=== PATIENT | female | born 1950 | race Caucasian/White ===

== ENCOUNTER 2023-11-05 14:50 | Inpatient (IN) | payer MEDICARE, MEDICAID ==
[~2023-11-05] VITALS: Ht 154.9 cm; Wt 41.3 kg
[~2023-11-05 14:50] MED LIST: ACETAMINOP325 MG/10 PO; ACIDOPHILUS1 EAC1 PO; AMLODIPINE BESYL5 MG PO; ANTI-DIARRHEAL2 MG PO; ARICEPT10 MG PO; ARTIFICIAL TEAR15 ML OD; JARDIANCE25 MG PO; LACTULOSE20 GM/30 M PO; LEXAPRO10 MG PO; LIPITOR20 MG PO; MELOXICAM7.5 MG PO; METFORMIN HCL500 MG PO; NAMENDA5 MG PO; ONDANSETRON ODT4 MG PO; PANTOPRAZOLE SO40 MG PO; SENNA LAX8.6 MG PO; TRAZODONE HCL50 MG PO; TRESIBA FL200 UNIT/1 SC; ULTRAM 50MG50 MG PO; VOLTAREN ARTHRI20 GM TOP; lidocaine patch 5% TP
[2023-11-05 15:59] LABS: BASOPHILS % 0.2 % (0.0-1.0); HEMATOCRIT 40.3 % (34.2-44.1); HEMOGLOBIN 13.6 g/dL (12.0-16.0); LYMPHOCYTES % 4.9 % (18.0-39.1); MEAN CORPUSCULAR HEMOGLOBIN 29.3 pg (28-32); MEAN CORPUSCULAR HGB CONC 33.7 g/dL (31-35); MEAN CORPUSCULAR VOLUME 86.9 fL (81-99); MONOCYTES # (AUTO) 0.6 (0.2-0.8); NEUTROPHILS # (AUTO) 17.8 (2.1-6.9); PLATELET COUNT 432 x10e3/uL (140-360); RED BLOOD COUNT 4.64 x10e6/uL (3.6-5.1); RED CELL DISTRIBUTION WIDTH 15.9 % (11.7-14.4); WHITE BLOOD COUNT 19.57 x10e3/uL (4.8-10.8)
[2023-11-05 16:05] LABS: BILIRUBIN,URINE NEGATIVE (NEGATIVE); CLARITY,URINE CLOUDY (CLEAR); COLOR,URINE YELLOW (YELLOW); GLUCOSE, URINE 500 (NEGATIVE); KETONES,URINE 2+ (NEGATIVE); LEUKOCYTE ESTERASE ,URINE LARGE (NEGATIVE); NITRITE,URINE NEGATIVE (NEGATIVE); PH,URINE 9 (5 - 7); PROTEIN,URINE DIPSTICK >=300 (NEGATIVE); URINE UROBILINOGEN 0.2 mg/dL (0.2 - 1)
[2023-11-05] MEDS: SODIUM CHLORIDE 0.9% 1000ML 1,000 ML IV STA (16:06)
[2023-11-05] MEDS: ACETAMINOPHEN 325 MG TAB PO ONE (16:15)
[2023-11-05 16:17] LABS: BACTERIA,URINE MANY /HPF; RBC,URINE 0-5 /HPF (0-5)
[2023-11-05 17:10] LABS: ALBUMIN/GLOBULIN RATIO 0.7 (0.8-2.0); ANION GAP 26.2 mmol/L (8-16); BILIRUBIN,TOTAL 0.5 mg/dL (0.2-1.2); CALCIUM 8.6 mg/dL (8.4-10.2); CREATININE, SERUM 1.55 mg/dL (0.57-1.11); TOTAL PROTEIN 7.5 g/dL (6.5-8.1)
[2023-11-05 17:11] LABS: POTASSIUM 5.2 mmol/L (3.5-5.1)
[2023-11-05 17:18] LABS: TROPONIN I 0.038 ng/mL (0-0.300)
[2023-11-05] MEDS ORDERED: IOPAMIDOL 370 MG/ML 100 ML INFUS..BTL INJ ONE (17:31)
[2023-11-05] MEDS ORDERED: ONDANSETRON HCL INJ 2MG/ML 2ML 2 MG/ML VIAL IV PRN (18:45)
[2023-11-05] MEDS: SODIUM CHLORIDE 0.9% 1000ML 1,000 ML IV SCH (19:18)
[2023-11-05 20:30] LABS: ABG PH 7.39 (7.35-7.45)
[2023-11-05 20:31] LABS: ABG HCO3 14 mmol/L (22-26); ABG PCO2 23 mmHg (35-45); ABG PO2 117 mmHg (80-105); ABG TCO2 15
[2023-11-05 22:00] VITALS: BP 146/79; PULSE 95; RESP 22; TEMP 97.7; O2SAT 100
[2023-11-05 23:43] VITALS: BP 146/79; PULSE 95; RESP 22; TEMP 97.7; O2SAT 100
[2023-11-06] VITALS (9 sets, daily range): BP systolic 114–146; BP diastolic 65–79; PULSE 88–104; RESP 17–22; TEMP 97.7–98.4; O2SAT 95–100
[2023-11-06] MEDS ORDERED: MEGESTROL400 MG/10 PO (04:24)
[2023-11-06 06:18] LABS: BASOPHILS % 0.1 % (0.0-1.0); HEMATOCRIT 32.1 % (34.2-44.1); HEMOGLOBIN 10.7 g/dL (12.0-16.0); LYMPHOCYTES # (AUTO) 0.8 (1.0-3.2); MEAN CORPUSCULAR HEMOGLOBIN 29.2 pg (28-32); MEAN CORPUSCULAR HGB CONC 33.3 g/dL (31-35); MEAN CORPUSCULAR VOLUME 87.5 fL (81-99); MONOCYTES # (AUTO) 0.7 (0.2-0.8); MONOCYTES % 4.3 % (4.4-11.3); NEUTROPHILS # (AUTO) 14.9 (2.1-6.9); NEUTROPHILS % 89.8 % (38.7-80.0); PLATELET COUNT 311 x10e3/uL (140-360); RED BLOOD COUNT 3.67 x10e6/uL (3.6-5.1); RED CELL DISTRIBUTION WIDTH 15.6 % (11.7-14.4); WHITE BLOOD COUNT 16.61 x10e3/uL (4.8-10.8)
[2023-11-06 06:55] LABS: TROPONIN I 0.042 ng/mL (0-0.300)
[2023-11-06 07:10] LABS: ALBUMIN 2.5 g/dL (3.5-5.0); ALBUMIN/GLOBULIN RATIO 0.7 (0.8-2.0); ANION GAP 22.8 mmol/L (8-16); BILIRUBIN,TOTAL 0.6 mg/dL (0.2-1.2); CALCIUM 8.4 mg/dL (8.4-10.2); CREATININE, SERUM 0.93 mg/dL (0.57-1.11); POTASSIUM 3.8 mmol/L (3.5-5.1); TOTAL PROTEIN 6.3 g/dL (6.5-8.1)
[2023-11-06] MEDS ORDERED: BISACODYL 10 MG SUPP PR PRN (13:00)
[2023-11-06] MEDS ORDERED: DEXTROSE 50% SYRINGE 50 ML IV PRN (13:00)
[2023-11-06 15:16] LABS: TROPONIN I 0.04 ng/mL (0-0.300)
[2023-11-06] MEDS: INSULIN LISPRO 100 UNIT/1 ML 3ML VIAL SQ SCH (16:30)
[2023-11-06] MEDS: TRAZODONE HCL 50 MG TAB PO SCH (20:20)
[2023-11-06] MEDS: DONEPEZIL HCL 5 MG TAB PO SCH (20:20)
[2023-11-07] VITALS (12 sets, daily range): BP systolic 111–132; BP diastolic 37–94; PULSE 84–102; RESP 13–23; TEMP 97.5–98.1; O2SAT 95–100
[2023-11-07 05:43] LABS: BASOPHILS % 0.1 % (0.0-1.0); HEMOGLOBIN 11.8 g/dL (12.0-16.0); LYMPHOCYTES # (AUTO) 1.1 (1.0-3.2); LYMPHOCYTES % 6.5 % (18.0-39.1); MEAN CORPUSCULAR HEMOGLOBIN 28.4 pg (28-32); MEAN CORPUSCULAR HGB CONC 30.3 g/dL (31-35); MONOCYTES # (AUTO) 0.7 (0.2-0.8); MONOCYTES % 4.1 % (4.4-11.3); NEUTROPHILS # (AUTO) 14.7 (2.1-6.9); NEUTROPHILS % 87.6 % (38.7-80.0); PLATELET COUNT 318 x10e3/uL (140-360); RED BLOOD COUNT 4.15 x10e6/uL (3.6-5.1); RED CELL DISTRIBUTION WIDTH 16.2 % (11.7-14.4); WHITE BLOOD COUNT 16.76 x10e3/uL (4.8-10.8)
[2023-11-07 07:08] LABS: ALBUMIN 2.5 g/dL (3.5-5.0); ALBUMIN/GLOBULIN RATIO 0.6 (0.8-2.0); ANION GAP 30.7 mmol/L (8-16); BILIRUBIN,TOTAL 0.4 mg/dL (0.2-1.2); CALCIUM 8.8 mg/dL (8.4-10.2); CREATININE, SERUM 1.04 mg/dL (0.57-1.11); MAGNESIUM 1.9 MG/DL (1.3-2.1); POTASSIUM 3.7 mmol/L (3.5-5.1); TOTAL PROTEIN 6.4 g/dL (6.5-8.1)
[2023-11-07] MEDS: DOCUSATE SODIUM 100 MG CAP PO SCH (09:00)
[2023-11-07] MEDS: PANTOPRAZOLE SOD 40 MG TABEC PO SCH (09:00)
[2023-11-07] MEDS: SENNOSIDES 8.6 MG TAB PO SCH (09:00)
[2023-11-07] MEDS: MEGACE 400 MG / 10 ML CUP PO SCH (09:00)
[2023-11-07] MEDS: ESCITALOPRAM OXALATE 10 MG TAB PO SCH (09:00)
[2023-11-07] MEDS: LACTATED RINGER'S 1,000 ML INJ SCH (09:48)
[2023-11-07] MEDS: Morphine 4mg INJECTION 4 MG/ML INJ IV PRN (11:14)
[2023-11-07] MEDS ORDERED: ONDANSETRON HCL 4 MG ORAL DISINTEGRATING TAB PO PRN (12:15)
[2023-11-07 14:04] LABS: ANION GAP 31.2 mmol/L (8-16); CALCIUM 8.8 mg/dL (8.4-10.2); CREATININE, SERUM 1.04 mg/dL (0.57-1.11); POTASSIUM 4.2 mmol/L (3.5-5.1)
[2023-11-07] MEDS: DEXTROSE 5% 1,000 ML IV ONE ×2 (15:53→17:13)
[2023-11-07 16:26] LABS: ABG HCO3 8 mmol/L (22-26); ABG PCO2 15 mmHg (35-45); ABG PH 7.32 (7.35-7.45); ABG PO2 130 mmHg (80-105); ABG TCO2 8
[2023-11-07] MEDS ORDERED: SODIUM BICARBONATE 8.4% 150 ML in DEXTROSE 5% 1,000 ML IV SCH (18:00)
[2023-11-07] MEDS ORDERED: DEXTROSE 5% 1,000 ML IV ONE (19:30)
[2023-11-07] MEDS ORDERED: INSULIN REGULAR, HUMAN 3ML VL 100 UNIT in SODIUM CHLORIDE 0.9% 100 ML IV SCH (21:15)
[2023-11-07] MEDS: INSULIN REGULAR, HUMAN 3ML VL 100 UNIT in SODIUM CHLORIDE 0.9% 100 ML IV SCH (22:40)
[2023-11-07] MEDS: SODIUM BICARBONATE 8.4% 150 ML in DEXTROSE 5% 1,000 ML IV SCH (22:41)
[2023-11-08] VITALS (21 sets, daily range): BP systolic 90–141; BP diastolic 34–99; PULSE 81–117; RESP 12–34; TEMP 97.5–98.9; O2SAT 98–100
[2023-11-08 00:46] LABS: ANION GAP 23.7 mmol/L (8-16); CALCIUM 8.2 mg/dL (8.4-10.2); CREATININE, SERUM 1.22 mg/dL (0.57-1.11); POTASSIUM 3.7 mmol/L (3.5-5.1)
[2023-11-08] MEDS ORDERED: POTASSIUM CHLORIDE 20MEQ/100ML 200 ML IV PRN (01:45)
[2023-11-08] MEDS ORDERED: POTASSIUM CHLORIDE 20MEQ/100ML 100 ML INJ PRN (01:45)
[2023-11-08] MEDS: MAGNESIUM SULF 1GRAM/DEXTROSE 100 ML IV PRN (01:57)
[2023-11-08] MEDS: ONDANSETRON HCL INJ 2MG/ML 2ML 2 MG/ML VIAL IV PRN (02:54)
[2023-11-08 04:47] LABS: BASOPHILS % 0.1 % (0.0-1.0); EOSINOPHILS % 0.1 % (0.0-6.0); LYMPHOCYTES # (AUTO) 1.1 (1.0-3.2); MEAN CORPUSCULAR HEMOGLOBIN 29.2 pg (28-32); MEAN CORPUSCULAR HGB CONC 33.9 g/dL (31-35); MEAN CORPUSCULAR VOLUME 86.2 fL (81-99); MONOCYTES # (AUTO) 0.7 (0.2-0.8); MONOCYTES % 4.3 % (4.4-11.3); NEUTROPHILS # (AUTO) 13.5 (2.1-6.9); NEUTROPHILS % 87.3 % (38.7-80.0); PLATELET COUNT 236 x10e3/uL (140-360); RED BLOOD COUNT 3.25 x10e6/uL (3.6-5.1); RED CELL DISTRIBUTION WIDTH 16.2 % (11.7-14.4)
[2023-11-08 04:48] LABS: ALBUMIN 2.1 g/dL (3.5-5.0); ANION GAP 15.8 mmol/L (8-16); BILIRUBIN,TOTAL 0.4 mg/dL (0.2-1.2); CALCIUM 8.2 mg/dL (8.4-10.2); CREATININE, SERUM 0.96 mg/dL (0.57-1.11); MAGNESIUM 1.8 MG/DL (1.3-2.1); TOTAL PROTEIN 5.5 g/dL (6.5-8.1)
[2023-11-08 04:49] LABS: ALBUMIN/GLOBULIN RATIO 0.6 (0.8-2.0)
[2023-11-08 04:57] LABS: HEMOGLOBIN 9.5 g/dL (12.0-16.0)
[2023-11-08 04:58] LABS: POTASSIUM 2.8 mmol/L (3.5-5.1)
[2023-11-08] MEDS: POTASSIUM CHLORIDE 20MEQ/100ML 200 ML IV ONE (05:35)
[2023-11-08] MEDS: DEXTROSE 5%/0.45% SOD CHL 1,000 ML IV SCH (06:28)
[2023-11-08] MEDS: MAGNESIUM SULF 1GRAM/DEXTROSE 100 ML IV ONE (07:49)
[2023-11-08] MEDS: PROMETHAZINE 12.5MG/ NACL 0.9% 12.5 MG/50 ML BAG IV ONE (11:38)
[2023-11-08 11:55] LABS: ANION GAP 14.7 mmol/L (8-16); CALCIUM 8.1 mg/dL (8.4-10.2); CREATININE, SERUM 0.66 mg/dL (0.57-1.11); POTASSIUM 3.7 mmol/L (3.5-5.1)
[2023-11-08] MEDS: MUPIROCIN 2% OINT 22 GM TUBE TOP SCH (15:06)
[2023-11-08] MEDS: POTASSIUM PHOSPHATE 40 MM in SODIUM CHLORIDE 0.9% 500ML 500 ML IV ONE (16:44)
[2023-11-08] MEDS ORDERED: POTASSIUM PHOSPHATE 40 MM in SODIUM CHLORIDE 0.9% 250ML 250 ML IV ONE (17:00)
[2023-11-08 23:30] LABS: CALCIUM 7.4 mg/dL (8.4-10.2); CREATININE, SERUM 0.65 mg/dL (0.57-1.11)
[2023-11-09] VITALS (26 sets, daily range): BP systolic 98–136; BP diastolic 41–69; PULSE 89–116; RESP 9–30; TEMP 97.6–98.2; O2SAT 95–100
[2023-11-09 06:21] LABS: BASOPHILS % 0.2 % (0.0-1.0); EOSINOPHILS % 0.3 % (0.0-6.0); HEMATOCRIT 28.4 % (34.2-44.1); HEMOGLOBIN 9.1 g/dL (12.0-16.0); LYMPHOCYTES # (AUTO) 1.2 (1.0-3.2); LYMPHOCYTES % 10.7 % (18.0-39.1); MEAN CORPUSCULAR HEMOGLOBIN 28.3 pg (28-32); MEAN CORPUSCULAR VOLUME 88.5 fL (81-99); MONOCYTES # (AUTO) 0.5 (0.2-0.8); MONOCYTES % 4.6 % (4.4-11.3); NEUTROPHILS # (AUTO) 9.4 (2.1-6.9); NEUTROPHILS % 82.6 % (38.7-80.0); PLATELET COUNT 195 x10e3/uL (140-360); RED BLOOD COUNT 3.21 x10e6/uL (3.6-5.1); RED CELL DISTRIBUTION WIDTH 16.3 % (11.7-14.4); WHITE BLOOD COUNT 11.32 x10e3/uL (4.8-10.8)
[2023-11-09 06:36] LABS: MAGNESIUM 1.6 MG/DL (1.3-2.1); PHOSPHORUS 2.2 MG/DL (2.3-4.7)
[2023-11-09 06:37] LABS: ANION GAP 14.2 mmol/L (8-16); CALCIUM 7.4 mg/dL (8.4-10.2); CREATININE, SERUM 0.57 mg/dL (0.57-1.11); POTASSIUM 4.2 mmol/L (3.5-5.1)
[2023-11-09] MEDS ORDERED: DEXTROSE 50% SYRINGE 50 ML IV PRN (06:45)
[2023-11-09] MEDS ORDERED: POTASSIUM PHOSPHATE 20 MM in SODIUM CHLORIDE 0.9% 250ML 250 ML IV ONE (08:30)
[2023-11-09] MEDS: INSULIN LISPRO 100 UNIT/1 ML 3ML VIAL SQ SCH (08:58)
[2023-11-09] MEDS: MAGNESIUM SULFATE 2GM/50ML 50 ML IV ONE (09:00)
[2023-11-09] MEDS: POTASSIUM PHOSPHATE 20 MM in SODIUM CHLORIDE 0.9% 250ML 250 ML IV ONE (11:54)
[2023-11-09 16:23] LABS: ANION GAP 10.7 mmol/L (8-16); CALCIUM 7.7 mg/dL (8.4-10.2); CREATININE, SERUM 0.5 mg/dL (0.57-1.11); POTASSIUM 4.7 mmol/L (3.5-5.1)
[2023-11-09] MEDS: ENOXAPARIN SOD INJ 40 MG/0.4 ML SYR SC SCH (17:34)
[2023-11-09] MEDS: Morphine 2mg Syringe 2 MG/ML SYR IV PRN (18:05)
[2023-11-09] MEDS: DEXTROSE 5% 1,000 ML IV ONE (19:45)
[2023-11-10] VITALS (44 sets, daily range): BP systolic 93–138; BP diastolic 48–94; PULSE 86–134; RESP 10–35; TEMP 97.8–99.7; O2SAT 95–100
[2023-11-10 04:48] LABS: BASOPHILS % 0.2 % (0.0-1.0); EOSINOPHILS % 0.5 % (0.0-6.0); HEMATOCRIT 27.8 % (34.2-44.1); HEMOGLOBIN 9.2 g/dL (12.0-16.0); LYMPHOCYTES # (AUTO) 1.4 (1.0-3.2); LYMPHOCYTES % 15.6 % (18.0-39.1); MEAN CORPUSCULAR HEMOGLOBIN 28.8 pg (28-32); MEAN CORPUSCULAR HGB CONC 33.1 g/dL (31-35); MEAN CORPUSCULAR VOLUME 87.1 fL (81-99); MONOCYTES # (AUTO) 0.4 (0.2-0.8); MONOCYTES % 4.5 % (4.4-11.3); NEUTROPHILS # (AUTO) 6.8 (2.1-6.9); NEUTROPHILS % 77.5 % (38.7-80.0); PLATELET COUNT 179 x10e3/uL (140-360); RED BLOOD COUNT 3.19 x10e6/uL (3.6-5.1); RED CELL DISTRIBUTION WIDTH 16.3 % (11.7-14.4); WHITE BLOOD COUNT 8.72 x10e3/uL (4.8-10.8)
[2023-11-10 05:06] LABS: ALBUMIN 1.9 g/dL (3.5-5.0); ALBUMIN/GLOBULIN RATIO 0.6 (0.8-2.0); BILIRUBIN,TOTAL 0.3 mg/dL (0.2-1.2); CALCIUM 7.7 mg/dL (8.4-10.2); CREATININE, SERUM 0.4 mg/dL (0.57-1.11); TOTAL PROTEIN 5.1 g/dL (6.5-8.1)
[2023-11-10] MEDS: SODIUM CHLORIDE 1 GM TAB PO SCH (08:30)
[2023-11-11] VITALS (37 sets, daily range): BP systolic 105–159; BP diastolic 52–107; PULSE 90–150; RESP 9–31; TEMP 97.7–98.9; O2SAT 92–100
[2023-11-11 06:07] LABS: BASOPHILS % 0.1 % (0.0-1.0); EOSINOPHILS % 0.2 % (0.0-6.0); HEMOGLOBIN 9.4 g/dL (12.0-16.0); LYMPHOCYTES # (AUTO) 1.3 (1.0-3.2); MEAN CORPUSCULAR HEMOGLOBIN 28.8 pg (28-32); MEAN CORPUSCULAR HGB CONC 32.4 g/dL (31-35); MONOCYTES # (AUTO) 0.5 (0.2-0.8); MONOCYTES % 5.3 % (4.4-11.3); NEUTROPHILS % 78.7 % (38.7-80.0); PLATELET COUNT 203 x10e3/uL (140-360); RED BLOOD COUNT 3.26 x10e6/uL (3.6-5.1); RED CELL DISTRIBUTION WIDTH 16.3 % (11.7-14.4)
[2023-11-11 07:02] LABS: ALBUMIN 1.9 g/dL (3.5-5.0); ALBUMIN/GLOBULIN RATIO 0.5 (0.8-2.0); ANION GAP 13.6 mmol/L (8-16); BILIRUBIN,TOTAL 0.2 mg/dL (0.2-1.2); CALCIUM 8.3 mg/dL (8.4-10.2); CREATININE, SERUM 0.55 mg/dL (0.57-1.11); POTASSIUM 4.6 mmol/L (3.5-5.1); TOTAL PROTEIN 5.5 g/dL (6.5-8.1)
[2023-11-11] MEDS: DEXTROSE 5% 1,000 ML IV ONE (09:02)
[2023-11-11] MEDS: INSULIN GLARGINE 100 UNITS/ML VIAL SQ SCH (23:23)
[2023-11-12] VITALS: BP 130/57; PULSE 100; RESP 19; TEMP 98; O2SAT 99
[2023-11-12 06:14] LABS: BASOPHILS % 0.3 % (0.0-1.0); EOSINOPHILS % 0.3 % (0.0-6.0); HEMATOCRIT 26.3 % (34.2-44.1); HEMOGLOBIN 8.7 g/dL (12.0-16.0); LYMPHOCYTES # (AUTO) 1.6 (1.0-3.2); LYMPHOCYTES % 17.6 % (18.0-39.1); MEAN CORPUSCULAR HEMOGLOBIN 28.9 pg (28-32); MEAN CORPUSCULAR HGB CONC 33.1 g/dL (31-35); MEAN CORPUSCULAR VOLUME 87.4 fL (81-99); MONOCYTES # (AUTO) 0.8 (0.2-0.8); MONOCYTES % 8.1 % (4.4-11.3); NEUTROPHILS # (AUTO) 6.5 (2.1-6.9); PLATELET COUNT 218 x10e3/uL (140-360); RED BLOOD COUNT 3.01 x10e6/uL (3.6-5.1); RED CELL DISTRIBUTION WIDTH 15.7 % (11.7-14.4); WHITE BLOOD COUNT 9.26 x10e3/uL (4.8-10.8)
[2023-11-12 06:34] LABS: ANION GAP 11.3 mmol/L (8-16); CREATININE, SERUM 0.58 mg/dL (0.57-1.11); MAGNESIUM 1.5 MG/DL (1.3-2.1); POTASSIUM 4.3 mmol/L (3.5-5.1)
[2023-11-12 09:32] VITALS: BP 130/65; PULSE 108; RESP 15; TEMP 98.5; O2SAT 99
[2023-11-12] MEDS: MAGNESIUM SULFATE 2GM/50ML 50 ML IV ONE ×2 (10:11→11:53)
[2023-11-12 13:55] VITALS: BP 101/58; PULSE 103; RESP 16; TEMP 97.6; O2SAT 100
[2023-11-12 16:52] VITALS: BP 112/54; PULSE 94; RESP 15; TEMP 97.3; O2SAT 100
[2023-11-12 20:00] VITALS: BP 131/68; PULSE 95; RESP 17; TEMP 98.5; O2SAT 100
[2023-11-12 21:30] VITALS: BP 131/68; PULSE 95; RESP 17; TEMP 98.5; O2SAT 100
[2023-11-13] VITALS (7 sets, daily range): BP systolic 104–140; BP diastolic 59–74; PULSE 92–104; RESP 18; TEMP 97.5–98.7; O2SAT 98–100
[2023-11-13 06:38] LABS: BASOPHILS % 0.3 % (0.0-1.0); EOSINOPHILS % 0.3 % (0.0-6.0); HEMATOCRIT 26.2 % (34.2-44.1); HEMOGLOBIN 8.7 g/dL (12.0-16.0); LYMPHOCYTES # (AUTO) 1.9 (1.0-3.2); LYMPHOCYTES % 20.4 % (18.0-39.1); MEAN CORPUSCULAR HEMOGLOBIN 28.7 pg (28-32); MEAN CORPUSCULAR HGB CONC 33.2 g/dL (31-35); MEAN CORPUSCULAR VOLUME 86.5 fL (81-99); MONOCYTES % 10.5 % (4.4-11.3); NEUTROPHILS % 64.5 % (38.7-80.0); PLATELET COUNT 257 x10e3/uL (140-360); RED BLOOD COUNT 3.03 x10e6/uL (3.6-5.1); RED CELL DISTRIBUTION WIDTH 15.5 % (11.7-14.4); WHITE BLOOD COUNT 9.27 x10e3/uL (4.8-10.8)
[2023-11-13 07:07] LABS: ANION GAP 11.3 mmol/L (8-16); CREATININE, SERUM 0.59 mg/dL (0.57-1.11); POTASSIUM 4.3 mmol/L (3.5-5.1)
[2023-11-13] MEDS ORDERED: CEFTRIAXONE 1 GM VIAL ONE (08:50)
[2023-11-13] MEDS: DOCUSATE SODIUM LIQD 100 MG/10 ML UDC NG SCH (09:19)
[2023-11-13] MEDS: METOPROLOL TARTRATE 25 MG TAB PO SCH (12:21)
[2023-11-13] MEDS: ACETAMINOPHEN 325 MG TAB PO PRN (16:56)
[2023-11-14] VITALS (8 sets, daily range): BP systolic 122–129; BP diastolic 62–70; PULSE 86–104; RESP 17–18; TEMP 97.9–98.6; O2SAT 95–100
[2023-11-14 07:20] LABS: BASOPHILS % 0.3 % (0.0-1.0); EOSINOPHILS % 0.3 % (0.0-6.0); HEMOGLOBIN 8.8 g/dL (12.0-16.0); LYMPHOCYTES # (AUTO) 1.9 (1.0-3.2); LYMPHOCYTES % 19.8 % (18.0-39.1); MEAN CORPUSCULAR HGB CONC 33.8 g/dL (31-35); MEAN CORPUSCULAR VOLUME 85.8 fL (81-99); MONOCYTES # (AUTO) 1.1 (0.2-0.8); MONOCYTES % 12.1 % (4.4-11.3); PLATELET COUNT 284 x10e3/uL (140-360); RED BLOOD COUNT 3.03 x10e6/uL (3.6-5.1); RED CELL DISTRIBUTION WIDTH 15.8 % (11.7-14.4); WHITE BLOOD COUNT 9.33 x10e3/uL (4.8-10.8)
[2023-11-14 07:39] LABS: CREATININE, SERUM 0.5 mg/dL (0.57-1.11)
[2023-11-14] MEDS: SODIUM CHLORIDE 1 GM TAB NG SCH (09:00)
[2023-11-14] MEDS ORDERED: LIDOCAINE HCL 2% LOCAL INJ 5 ML SDV VIAL INJ ONE (14:25)
[2023-11-14] MEDS ORDERED: DEXMEDETOMIDINE HCL 200 MCG/2 ML VIAL ONE (14:25)
[2023-11-14] MEDS ORDERED: PROPOFOL IV EMULSION 10 MG/ML 20 ML VIAL ONE (14:25)
[2023-11-15 00:25] VITALS: BP 157/66; PULSE 98; RESP 17; TEMP 98.6; O2SAT 100
[2023-11-15 04:00] VITALS: BP 132/78; PULSE 105; RESP 16; TEMP 97.7; O2SAT 95
[2023-11-15 08:24] VITALS: BP 135/68; PULSE 99; RESP 16; TEMP 98.1; O2SAT 98
[2023-11-15 09:00] VITALS: BP 135/68; PULSE 99; RESP 16; TEMP 98.1; O2SAT 98
[2023-11-15 12:25] VITALS: BP 133/62; PULSE 100; RESP 17; TEMP 98.4; O2SAT 99
[2023-11-15 16:44] VITALS: BP 135/66; PULSE 102; RESP 17; TEMP 98.3; O2SAT 97
== END 2023-11-15 20:50 | DRG 871 ==
LOC: ER 14:53 → ERHOLD 18:38 → MED/SURG3 21:58 → ICU 11-07 20:01 → MED/SURG2 11-11 20:27
PROVIDERS: ADMIT Internal Medicine; ATTEND Internal Medicine
PROC: 4A133R1 Monitoring of Arterial Saturation, Peripheral, Percutaneous Approach (ICD-10-PCS; principal; 2023-11-05)
PROC: 02HV33Z Insertion of Infusion Device into Superior Vena Cava, Percutaneous Approach (ICD-10-PCS; 2023-11-05)
PROC: 3E0333Z Introduction of Anti-inflammatory into Peripheral Vein, Percutaneous Approach (ICD-10-PCS; 2023-11-05)
PROC: 0DH63UZ Insertion of Feeding Device into Stomach, Percutaneous Approach (ICD-10-PCS; 2023-11-14)
DX: A41.4 Sepsis due to anaerobes (principal); E11.11 Type 2 diabetes mellitus with ketoacidosis with coma; N17.0 Acute kidney failure with tubular necrosis; G93.41 Metabolic encephalopathy; N39.0 Urinary tract infection, site not specified; F02.B4 Dementia in other diseases classified elsewhere, moderate, with anxiety; E87.0 Hyperosmolality and hypernatremia; F02.B3 Dementia in other diseases classified elsewhere, moderate, with mood disturbance; N12 Tubulo-interstitial nephritis, not specified as acute or chronic; G30.9 Alzheimer's disease, unspecified; E83.39 Other disorders of phosphorus metabolism; E11.59 Type 2 diabetes mellitus with other circulatory complications; E78.2 Mixed hyperlipidemia; Z66 Do not resuscitate; R65.20 Severe sepsis without septic shock; Z11.52 Encounter for screening for COVID-19; R13.12 Dysphagia, oropharyngeal phase; E87.8 Other disorders of electrolyte and fluid balance, not elsewhere classified; E87.5 Hyperkalemia; E86.0 Dehydration; R33.8 Other retention of urine; N28.9 Disorder of kidney and ureter, unspecified; R53.81 Other malaise; T38.3X5A Adverse effect of insulin and oral hypoglycemic [antidiabetic] drugs, initial encounter; F32.9 Major depressive disorder, single episode, unspecified; B96.4 Proteus (mirabilis) (morganii) as the cause of diseases classified elsewhere; K21.00 Gastro-esophageal reflux disease with esophagitis, without bleeding; Z79.4 Long term (current) use of insulin; M16.12 Unilateral primary osteoarthritis, left hip; Z79.84 Long term (current) use of oral hypoglycemic drugs; Z96.0 Presence of urogenital implants; Z86.73 Personal history of transient ischemic attack (TIA), and cerebral infarction without residual deficits
CPT/HCPCS: 36415; 36569; 36600; 43246; 71045; 74018; 74177; 80048; 80053; 81001; 82010; 82550; 82805; 82948; 83605; 83690; 83735; 83880; 84100; 84484; 85025; 87040; 87086; 87186; 93005; 93306; 99252; 99284; J0696; J1650; J2001; J2185; J2270; J2405; J2543; J2550; J3475; J3480; J7030; J7050; J7070; Q9967; U0002